=== PATIENT | female | born 1955 | race Caucasian/White ===

== ENCOUNTER 2017-11-15 15:29 | Inpatient (IN) | payer OTHER ==
[~2017-11-15] VITALS: Ht 165.1 cm; Wt 99.3 kg
[2017-11-15] VITALS (9 sets, daily range): BP systolic 139–170; BP diastolic 72–96; PULSE 107–124; RESP 16–22; TEMP 99.1–99.5; O2SAT 87–95
[~2017-11-15 15:29] MED LIST: AMLO5TAB2 PO; BUPR150XL PO; HYDR-3533 PO; IBUP-232 PO; REST0.05 EACH EYE; TAMS5CAP PO; TRAV0.00 EACH EYE; WATER PILL; ZOFR4TAB PO
--- NOTE | 2017-11-15 15:58 | PD ---
HPI Chief Complaint: Respiratory Symptoms Time Seen by Provider: 15:38 Travel History International Travel<30 days: No Contact w/Intl Traveler<30days: No Traveled to known affect area: No History of Present Illness HPI Patient has a 62-year-old female with a history of COPD, 1 pack per day smoker presents emergency department with 2 day history of cough congestion shortness of breath nasal stuffiness, intermittent chills. Has not taken her temperature at home but thinks it has been in excess of 100 particularly in the morning at night at night. She is not on any home oxygen. States this happens to her about once a year an typically in the colder months. Denies any history of long stasis, any history of blood clots any history of cancer. States symptoms are moderate, gradually worsening, contacts as above, associated signs symptoms as above PFSH Past Medical History Anxiety: No Depression: Yes Cancer: Yes (SKIN CANCER) Cardiovascular Problems: Yes (htn on meds) Diabetes: No Diminished Hearing: No Endocrine: No Glaucoma: Yes Genitourinary: No Hypertension: Yes Immune Disorder: No Kidney Stones: Yes (OCT 2012) Musculoskeletal: No Neurologic: No Psychiatric: Yes Reproductive: No Respiratory: No Thyroid Disease: No ?: Not : 2 Para: 2 Past Surgical History Abdominal Surgery: Yes (GALL BLADDER) Cholecystectomy: Yes Genitourinary Surgery: Yes Gynecologic Surgery: Yes (HYSTERECTOMY, OOPHERECTOMY ) Hysterectomy: Yes Oral Surgery: Yes (TONSILS) Tonsillectomy: Yes Other Surgery: Yes Social History Alcohol Use: Yes (Occasionally ) Tobacco Use: Yes (1 PPD) Substance Use: No Allergies-Medications (Allergen,Severity, Reaction): Coded Allergies: iodine (Unverified Allergy, Severe, Swelling, 11/15/17) potassium iodide (Unverified Allergy, Severe, Swelling, 11/15/17) povidone-iodine (Unverified Allergy, Severe, Swelling, 11/15/17) sodium iodide (Unverified Allergy, Severe, Swelling, 11/15/17) sodium iodide (Unverified Allergy, Severe, Swelling, 11/15/17) Reported Meds & Prescriptions Reported Meds & Active Scripts Active Reported Travatan Z Opth Drops (Travoprost) 0.004 % Soln 1 Drop EACH EYE HS Restasis Opth (Cyclosporine Opth) 0.05% Emul 1 Drop EACH EYE BID Wellbutrin Xl 24 HR (Bupropion HCl) 150 Mg Tab 75 Mg PO DAILY Amlodipine (Amlodipine Besylate) 5 Mg Tab 5 Mg PO DAILY Review of Systems Except as stated in HPI: all other systems reviewed are Neg Physical Exam Narrative GENERAL: Well-developed well-nourished, speaking in short phrases. SKIN: Focused skin assessment warm/dry. HEAD: Atraumatic. Normocephalic. EYES: Pupils equal and round. No scleral icterus. No injection or drainage. ENT: No nasal bleeding or discharge. Mucous membranes pink and moist. NECK: Trachea midline. No JVD. CARDIOVASCULAR: Regular rhythm with tachycardia. No murmur appreciated. No murmurs gallops or rubs. RESPIRATORY: No accessory muscle use. Decreased air entry on the left, decreased air entry in the right, bibasilar rales. There are some intercostal retractions. Breath sounds equal bilaterally. GASTROINTESTINAL: Abdomen soft, non-tender, nondistended. Hepatic and splenic margins not palpable. MUSCULOSKELETAL: No obvious deformities. No clubbing. No cyanosis. No edema. NEUROLOGICAL: Awake and alert. No obvious cranial nerve deficits. Motor grossly within normal limits. Normal speech. PSYCHIATRIC: Appropriate mood and affect; insight and judgment normal. Data Data Last Documented VS Vital Signs Date Time Temp Pulse Resp B/P (MAP) Pulse Ox O2 Delivery O2 Flow Rate FiO2 11/15/17 18:12 99.5 123 19 153/83 (106) 95 Nasal Cannula 2.00 Orders Orders Sepsis Workup Initiated (11/15/17 ) Complete Blood Count With Diff (11/15/17 15:51) Comprehensive Metabolic Panel (11/15/17 15:51) Prothrombin Time / Inr (Pt) (11/15/17 15:51) Act Partial Throm Time (Ptt) (11/15/17 15:51) Lactic Acid Sepsis Protocol (11/15/17 15:51) Magnesium (Mg) (11/15/17 15:51) Phosphorus (Po4) (11/15/17 15:51) Lipase (11/15/17 15:51) Ckmb (Isoenzyme) Profile (11/15/17 15:51) Troponin I (11/15/17 15:51) Urinalysis - C+S If Indicated (11/15/17 15:51) Blood Culture (11/15/17 15:51) Chest, Pa & Lat (11/15/17 15:51) Ecg Monitoring (11/15/17 15:51) Iv Access Insert/Monitor (11/15/17 15:51) Oximetry (11/15/17 15:51) Oxygen Administration (11/15/17 15:51) Albuterol-Ipratropium Neb (Duoneb Neb) (11/15/17 16:00) Influenzae A/B Antigen (11/15/17 15:51) Prednisone (Deltasone) (11/15/17 18:15) Azithromycin (Zithromax) (11/15/17 18:15) Ceftriaxone Inj (Rocephin Inj) (11/15/17 18:15) Admit Order (Ed Use Only) (11/15/17 ) Labs Laboratory Tests Test 11/15/17 15:40 11/15/17 16:54 White Blood Count 15.5 TH/MM3 Red Blood Count 5.14 MIL/MM3 Hemoglobin 14.9 GM/DL Hematocrit 46.1 % Mean Corpuscular Volume 89.7 FL Mean Corpuscular Hemoglobin 28.9 PG Mean Corpuscular Hemoglobin Concent 32.2 % Red Cell Distribution Width 13.0 % Platelet Count 322 TH/MM3 Mean Platelet Volume 8.7 FL Neutrophils (%) (Auto) 80.4 % Lymphocytes (%) (Auto) 10.8 % Monocytes (%) (Auto) 5.2 % Eosinophils (%) (Auto) 2.7 % Basophils (%) (Auto) 0.9 % Neutrophils # (Auto) 12.5 TH/MM3 Lymphocytes # (Auto) 1.7 TH/MM3 Monocytes # (Auto) 0.8 TH/MM3 Eosinophils # (Auto) 0.4 TH/MM3 Basophils # (Auto) 0.1 TH/MM3 CBC Comment DIFF FINAL Differential Comment Prothrombin Time 9.9 SEC Prothromb Time International Ratio 1.0 RATIO Activated Partial Thromboplast Time 28.5 SEC Blood Urea Nitrogen 7 MG/DL Creatinine 0.71 MG/DL Random Glucose 111 MG/DL Total Protein 7.6 GM/DL Albumin 3.3 GM/DL Calcium Level 9.0 MG/DL Phosphorus Level 2.6 MG/DL Magnesium Level 2.1 MG/DL Alkaline Phosphatase 132 U/L Aspartate Amino Transf (AST/SGOT) 14 U/L Alanine Aminotransferase (ALT/SGPT) 20 U/L Total Bilirubin 0.5 MG/DL Sodium Level 138 MEQ/L Potassium Level 3.7 MEQ/L Chloride Level 103 MEQ/L Carbon Dioxide Level 27.0 MEQ/L Anion Gap 8 MEQ/L Estimat Glomerular Filtration Rate 84 ML/MIN Lactic Acid Level 1.4 mmol/L Total Creatine Kinase 77 U/L Troponin I LESS THAN 0.02 NG/ML Lipase 65 U/L MDM Medical Decision Making Medical Screen Exam Complete: Yes Emergency Medical Condition: Yes Differential Diagnosis COPD exacerbation, pneumonia, bronchitis, URI, hypoxic respiratory failure Narrative Course Patient room to the emergency department, initial saturation 87% on room air, placed on nasal cannula, DuoNeb's given, saturations have improved to 93% on 2 L nasal cannula, trial off of nasal cannula drop saturation to 89%. Restarted on nasal cannula, steroids given, chest x-ray but official read as no acute consolidation. Continues to have hypoxia despite treatments in the emergency department, remaining tachycardic. Discussed with her abnormal vital signs recommend overnight stay in the hospital least, will start on empiric antibiotics for possible occult pneumonia. Patient discussed with Dr. Janice Julio for admission who is agreeable. Diagnosis Primary Impression: Acute respiratory failure with hypoxia Additional Impressions: COPD exacerbation SIRS (systemic inflammatory response syndrome) Admitting Information Admitting Physician Requests: Observation Condition: Stable Sharif Smith MD Nov 15, 2017 15:58
[2017-11-15] MEDS ORDERED: RESP: ALBUTEROL 2.5 MG/IPRATROPIUM 0.5 MG NEB (SCH) NEB ONE (16:00)
[2017-11-15 16:05] LABS: AUTOMATED NEUTROPHIL # 12.5 TH/MM3 (1.8-7.7); BASOPHIL # 0.1 TH/MM3 (0-0.2); BASOPHIL % 0.9 % (0.0-2.0); EOSINOPHIL # 0.4 TH/MM3 (0-0.4); EOSINOPHIL % 2.7 % (0.0-4.0); HEMATOCRIT 46.1 % (35.0-46.0); HEMOGLOBIN 14.9 GM/DL (11.6-15.3); LYMPH % 10.8 % (9.0-44.0); LYMPHOCYTE # 1.7 TH/MM3 (1.0-4.8); MEAN CELL VOLUME 89.7 FL (80.0-100.0); MEAN CORPUSCULAR HEMOGLOBIN 28.9 PG (27.0-34.0); MEAN CORPUSCULAR HGB CONC 32.2 % (32.0-36.0); MEAN PLATELET VOLUME 8.7 FL (7.0-11.0); MONO % 5.2 % (0.0-8.0); MONOCYTE # 0.8 TH/MM3 (0-0.9); NEUT % 80.4 % (16.0-70.0); PLATELET COUNT 322 TH/MM3 (150-450); RED BLOOD COUNT 5.14 MIL/MM3 (4.00-5.30); WHITE BLOOD COUNT 15.5 TH/MM3 (4.0-11.0)
[2017-11-15 16:15] LABS: CHLORIDE 103 MEQ/L (98-107); SODIUM (NA) 138 MEQ/L (136-145)
[2017-11-15 16:19] LABS: ALBUMIN 3.3 GM/DL (3.4-5.0); BLOOD UREA NITROGEN 7 MG/DL (7-18); GLUCOSE,RANDOM 111 MG/DL (74-106); LIPASE 65 U/L (73-393); MAGNESIUM 2.1 MG/DL (1.5-2.5)
[2017-11-15 16:20] LABS: PROTHROMBIN TIME - PATIENT 9.9 SEC (9.8-11.6)
[2017-11-15 16:21] LABS: ALT (GPT) 20 U/L (10-53)
[2017-11-15 16:22] LABS: AST (GOT) 14 U/L (15-37); CREATININE 0.71 MG/DL (0.50-1.00); GLOMERULAR FILTRATION RATE 84 ML/MIN (>89); PHOSPHORUS 2.6 MG/DL (2.5-4.9)
[2017-11-15 16:23] LABS: TOTAL BILIRUBIN ADULT 0.5 MG/DL (0.2-1.0); TOTAL PROTEIN 7.6 GM/DL (6.4-8.2)
[2017-11-15 16:24] LABS: ALKALINE PHOSPHATASE 132 U/L (45-117)
[2017-11-15 16:27] LABS: TROPONIN I LESS THAN 0.02 NG/ML (0.02-0.05)
--- NOTE | 2017-11-15 17:56 | RADRPT ---
EXAM DATE/TIME: 11/15/2017 17:09 [facility] COMPARISON: CHEST PA & LAT, September 09, 2014, 22:51. INDICATIONS : Cough, short of breath, fever, pain MEDICAL HISTORY : None. SURGICAL HISTORY : None. ENCOUNTER: Initial ACUITY: 3 days PAIN SCORE: 5/10 LOCATION: Bilateral chest FINDINGS: PA and lateral views of the chest demonstrate the lungs to be symmetrically aerated without evidence of mass, infiltrate or effusion. The cardiomediastinal contours are unremarkable. Osseous structure s are intact. CONCLUSION: No acute disease. Chavo Velazco MD on November 15, 2017 at 17:54 Board Certified Radiologist. This report was verified electronically.
[2017-11-15] MEDS ORDERED: AZITHROMYCIN 250 MG TAB PO ONE (18:15)
[2017-11-15] MEDS ORDERED: cefTRIAXone INJ 1,000 MG in SODIUM CHLORIDE 0.9% INJ 100 ML IV ONE (18:15)
[2017-11-15] MEDS ORDERED: predniSONE 20 MG TAB PO ONE (18:15)
[2017-11-15] MEDS ORDERED: AZITHROMYCIN 250 MG TAB PO SCH (18:45)
[2017-11-15] MEDS: methylPREDNISolone SOD SUCC 125 MG/2 ML VIAL IV PUSH SCH (20:10)
[2017-11-15] MEDS: ENOXAPARIN SODIUM 40 MG/0.4 ML SYRINGE SQ SCH (20:10)
[2017-11-15] MEDS: RESP: ALBUTEROL 2.5 MG/IPRATROPIUM 0.5 MG NEB (SCH) INH (20:19)
[2017-11-15] MEDS: CYCLOSPORINE EACH EYE SCH (21:00)
[2017-11-15] MEDS: SODIUM CHLORIDE 0.9% FLUSH 10 ML FLUSH IV FLUSH SCH (21:13)
[2017-11-15] MEDS: LATANOPROST 0.005% OPHT SOLN 2.5 ML BTL EACH EYE SCH (21:32)
[2017-11-16] VITALS (10 sets, daily range): BP systolic 128–150; BP diastolic 64–90; PULSE 100–120; RESP 14–18; TEMP 97–99.1; O2SAT 91–100
[2017-11-16] MEDS: RESP: ALBUTEROL 2.5 MG/3 ML NEB (PRN) INH ×2 (00:46→05:19)
[2017-11-16] MEDS: SODIUM CHLORIDE 0.9% FLUSH 10 ML FLUSH IV FLUSH PRN (01:17)
[2017-11-16] MEDS: methylPREDNISolone SOD SUCC 125 MG/2 ML VIAL IV PUSH SCH ×4 (01:17→19:57)
[2017-11-16] MEDS: guaiFENesin SOLUTION 200 MG/10 ML CUP PO PRN ×3 (01:17→23:12)
[2017-11-16] MEDS ORDERED: ACETAMINOPHEN 325 MG TAB PO PRN (05:00)
[2017-11-16] MEDS: RESP: ALBUTEROL 2.5 MG/IPRATROPIUM 0.5 MG NEB (SCH) INH ×3 (07:46→20:20)
[2017-11-16] MEDS: SODIUM CHLORIDE 0.9% FLUSH 10 ML FLUSH IV FLUSH SCH ×2 (08:02→19:57)
[2017-11-16] MEDS: CYCLOSPORINE EACH EYE SCH ×2 (09:00→20:01)
[2017-11-16] MEDS: buPROPion HCL 75 MG TAB PO SCH (09:07)
[2017-11-16] MEDS: amLODIPine BESYLATE 5 MG TAB PO SCH (09:07)
--- NOTE | 2017-11-16 10:13 | HHI.HP ---
[facility] Erin Lozoya MD Admission Diagnosis Hyoxic respiratory failure, COPD exacerbation. Diagnoses: Chief Complaint: sob Travel History International Travel<30 Days: No Contact w/Intl Traveler <30 Da: No Traveled to Known Affected Are: No History of Present Illness 62-year-old female with a past medical history of hypertension, anxiety/ depression, tobaccoism, came to the emergency room evaluation of shortness of breath, wheezing getting worse since Thursday. This patient has persistent cough waking her up from night productive cough of yellow. She chills. No vomiting. 2. Also complains of wheezing eating worse. Was she was never diagnosed with COPD. However she is more per day for 5 years. No chest pain, palpitations, lightheadedness. No urinary complaints no abdominal pain. Feels tired. Review of Systems Except as stated in HPI: all other systems reviewed are Neg Past Family Social History Past Medical History Hypertension, depression Past Surgical History Hysterectomy, tonsillectomy, cholecystectomy Reported Medications Reported Meds & Active Scripts Active Reported Travatan Z Opth Drops (Travoprost) 0.004 % Soln 1 Drop EACH EYE HS Restasis Opth (Cyclosporine Opth) 0.05% Emul 1 Drop EACH EYE BID Wellbutrin Xl 24 HR (Bupropion HCl) 150 Mg Tab 75 Mg PO DAILY Amlodipine (Amlodipine Besylate) 5 Mg Tab 5 Mg PO DAILY Allergies: Coded Allergies: iodine (Unverified Allergy, Severe, Swelling, 11/15/17) potassium iodide (Unverified Allergy, Severe, Swelling, 11/15/17) povidone-iodine (Unverified Allergy, Severe, Swelling, 11/15/17) sodium iodide (Unverified Allergy, Severe, Swelling, 11/15/17) sodium iodide (Unverified Allergy, Severe, Swelling, 11/15/17) Family History Mother with COPD, pancreatic cancer Father with heart disease, quadruple bypass Brother with diabetes, alcohol abuse Social History Tobacco use 1 pack per day for 5 years Denies alcohol use or illicit drug use Physical Exam Vital Signs Vital Signs Date Time Temp Pulse Resp B/P (MAP) Pulse Ox O2 Delivery O2 Flow Rate FiO2 11/16/17 09:52 Nasal Cannula 2.00 11/16/17 08:00 97.2 113 14 144/71 (95) 100 11/16/17 07:47 93 Nasal Cannula 3.00 11/16/17 05:19 91 Nasal Cannula 3.00 11/16/17 04:00 98.0 100 16 132/78 (96) 94 11/16/17 00:00 99.1 120 16 139/84 (102) 93 11/15/17 23:15 107 11/15/17 22:00 99.1 120 16 139/84 (102) 94 11/15/17 21:30 93 Nasal Cannula 3.00 11/15/17 21:04 112 16 154/73 (100) 93 Nasal Cannula 3.00 11/15/17 20:19 95 Nasal Cannula 3.00 11/15/17 19:26 114 16 94 Nasal Cannula 3.00 11/15/17 19:26 114 16 150/81 (104) 94 Nasal Cannula 3.00 11/15/17 18:12 99.5 123 19 153/83 (106) 95 Nasal Cannula 2.00 11/15/17 17:17 123 18 153/72 (99) 94 Nasal Cannula 2.00 11/15/17 17:14 18 93 Nasal Cannula 2.00 11/15/17 16:59 94 Nasal Cannula 3.00 11/15/17 15:55 94 Nasal Cannula 3.00 11/15/17 15:48 99.3 124 22 170/96 (120) 87 Physical Exam GENERAL: This is a well-nourished, well-developed patient, in no apparent distress. SKIN: No rashes, ecchymoses or lesions. Cool and dry. HEAD: Atraumatic. Normocephalic. No temporal or scalp tenderness. EYES: Pupils equal round and reactive. Extraocular motions intact. No scleral icterus. No injection or drainage. ENT: Nose without bleeding, purulent drainage or septal hematoma. Throat without erythema, tonsillar hypertrophy or exudate. Uvula midline. Airway patent. NECK: Trachea midline. No JVD or lymphadenopathy. Supple, nontender, no meningeal signs. CARDIOVASCULAR: Regular rate and rhythm without murmurs, gallops, or rubs. RESPIRATORY: Clear to auscultation. Breath sounds equal bilaterally. No wheezes , rales, or rhonchi. GASTROINTESTINAL: Abdomen soft, non-tender, nondistended. No hepato-splenomegaly , or palpable masses. No guarding. MUSCULOSKELETAL: Extremities without clubbing, cyanosis, or edema. No joint tenderness, effusion, or edema noted. No calf tenderness. Negative Homans sign bilaterally. NEUROLOGICAL: Awake and alert. Cranial nerves II through XII intact. Motor and sensory grossly within normal limits. Five out of 5 muscle strength in all muscle groups. Normal speech. Laboratory Laboratory Tests Test 11/15/17 15:40 White Blood Count 15.5 Red Blood Count 5.14 Hemoglobin 14.9 Hematocrit 46.1 Mean Corpuscular Volume 89.7 Mean Corpuscular Hemoglobin 28.9 Mean Corpuscular Hemoglobin Concent 32.2 Red Cell Distribution Width 13.0 Platelet Count 322 Mean Platelet Volume 8.7 Neutrophils (%) (Auto) 80.4 Lymphocytes (%) (Auto) 10.8 Monocytes (%) (Auto) 5.2 Eosinophils (%) (Auto) 2.7 Basophils (%) (Auto) 0.9 Neutrophils # (Auto) 12.5 Lymphocytes # (Auto) 1.7 Monocytes # (Auto) 0.8 Eosinophils # (Auto) 0.4 Basophils # (Auto) 0.1 CBC Comment DIFF FINAL Differential Comment Prothrombin Time 9.9 Prothromb Time International Ratio 1.0 Activated Partial Thromboplast Time 28.5 Blood Urea Nitrogen 7 Creatinine 0.71 Random Glucose 111 Total Protein 7.6 Albumin 3.3 Calcium Level 9.0 Phosphorus Level 2.6 Magnesium Level 2.1 Alkaline Phosphatase 132 Aspartate Amino Transf (AST/SGOT) 14 Alanine Aminotransferase (ALT/SGPT) 20 Total Bilirubin 0.5 Sodium Level 138 Potassium Level 3.7 Chloride Level 103 Carbon Dioxide Level 27.0 Anion Gap 8 Estimat Glomerular Filtration Rate 84 Lactic Acid Level 1.4 Total Creatine Kinase 77 Troponin I LESS THAN 0.02 Lipase 65 Date/Time Source Procedure Growth Status 11/15/17 15:45 Blood Peripheral Aerobic Blood Culture Pending Received 11/15/17 15:45 Blood Peripheral Anaerobic Blood Culture Pending Received 11/15/17 16:54 Nasal Washing Influenza Types A,B Antigen (KIRA) - Final NEGATIVE FOR FLU A AND B ANTIGEN.... Complete Result Diagram: 11/15/17 1540 11/15/17 1540 Imaging Last Impressions Chest X-Ray 11/15/17 1551 Signed Impressions: Service Date/Time: Wednesday, November 15, 2017 17:09 - CONCLUSION: No acute disease. MD Norah Nance VTE Risk Assessment Norah VTE Risk Assessment: Mod/High Risk (score >= 2) Geraldrini Risk Assessment Model Point Value = 1 Point Value = 2 Point Value = 3 Point Value = 5 Age 41-60 Minor surgery BMI > 25 kg/m2 Swollen legs Varicose veins or History of unexplained or recurrent spontaneous Oral contraceptives or hormone replacement Sepsis (< 1 month) Serious lung disease, including pneumonia (< 1 month) Abnormal pulmonary function Acute myocardial infarction Congestive heart failure (< 1 month) History of inflammatory bowel disease Medical patient at bed rest Age 61-74 Arthroscopic surgery Major open surgery (> 45 min) Laparoscopic surgery (> 45 min) Malignancy Confined to bed (> 72 hours) Immobilizing plaster cast Central venous access Age >= 75 History of VTE Family history of VTE Factor V Leiden Prothrombin [id number] Lupus anticoagulant Anticardiolipin antibodies Elevated serum homocysteine Heparin-induced thrombocytopenia Other congenital or acquired thrombophilia Stroke (< 1 month) Elective arthroplasty Hip, pelvis, or leg fracture Acute spinal cord injury (< 1 month) Prophylaxis Regimen Total Risk Factor Score Risk Level Prophylaxis Regimen 0-1 Low Early ambulation 2 Moderate Order ONE of the following: *Sequential Compression Device (SCD) *Heparin 5000 units SQ BID 3-4 Higher Order ONE of the following medications: *Heparin 5000 units SQ TID *Enoxaparin/Lovenox 40 mg SQ daily (WT < 150 kg, CrCl > 30 mL/min) *Enoxaparin/Lovenox 30 mg SQ daily (WT < 150 kg, CrCl > 10-29 mL/min) *Enoxaparin/Lovenox 30 mg SQ BID (WT < 150 kg, CrCl > 30 mL/min) AND/OR *Sequential Compression Device (SCD) 5 or more Highest Order ONE of the following medications: *Heparin 5000 units SQ TID (Preferred with Epidurals) *Enoxaparin/Lovenox 40 mg SQ daily (WT < 150 kg, CrCl > 30 mL/min) *Enoxaparin/Lovenox 30 mg SQ daily (WT < 150 kg, CrCl > 10-29 mL/min) *Enoxaparin/Lovenox 30 mg SQ BID (WT < 150 kg, CrCl > 30 mL/min) AND *Sequential Compression Device (SCD) Assessment and Plan Assessment and Plan 62 yo male with Community-acquired pneumonia Hypoxia Hypertension, stable resume home meds. Monitor Depression /anxiety stable resume, home meds Antibiotics azithromycin, Rocephin IV Incentive spirometry Oxygen supplement keep oxygen saturation more than 90% Mucinex DuoNeb's when necessary Check blood cultures, sputum cultures, Legionella and pneumococcal antigen Resume home medications as appropriate DVT prophylaxis SCD/teds/Lovenox Discussed Condition With patient, nurse Physician Certification 2 Midnight Certification Type: Admission for Inpatient Services Order for Inpatient Services The services are ordered in accordance with Medicare regulations or non- Medicare payer requirements, as applicable. In the case of services not specified as inpatient-only, they are appropriately provided as inpatient services in accordance with the 2-midnight benchmark. Estimated LOS (days): 3 days is the estimated time the patient will need to remain in the hospital, assuming treatment plan goals are met and no additional complications. Post-Hospital Plan: Home Amanda Rich MD Nov 16, 2017 10:13
[2017-11-16] MEDS ORDERED: AZITHROMYCIN 250 MG TAB PO SCH (18:00)
[2017-11-16] MEDS: ENOXAPARIN SODIUM 40 MG/0.4 ML SYRINGE SQ SCH (19:56)
[2017-11-16] MEDS: LATANOPROST 0.005% OPHT SOLN 2.5 ML BTL EACH EYE SCH (20:00)
--- NOTE | 2017-11-16 20:45 | EKG ---
Date Performed: 11/15/2017 Time Performed: 15:35:56 PTAGE: 62 years EKG: SINUS TACHYCARDIA INCOMPLETE RIGHT BUNDLE BRANCH BLOCK NONSPECIFIC ST-T WAVE CHANGES Since previous tracing, no significant change noted ABNORMAL ECG PREVIOUS TRACING : 09/09/14 @ 2233 DOCTOR: Nell Noriega Interpretating Date/Time 11/16/2017 20:43:48
[2017-11-16 22:07] LABS: BILIRUBIN, URINE NEG (NEG); BLOOD, URINE NEG (NEG); GLUCOSE,URINE NEG (NEG); KETONE, URINE NEG (NEG); NITRITE,URINE NEG (NEG); PH, URINE 6.5 (5.0-8.5); URINE LEUKOCYTE ESTERASE NEG (NEG)
[2017-11-16 22:16] LABS: URINE COLOR YELLOW (YELLW/STRAW)
[2017-11-16 22:17] LABS: SQUAMOUS EPITHELIAL CELL URINE 0-5 /hpf (0-5); WBC, URINE 0-2 /hpf (0-5)
[2017-11-17] VITALS: BP 121/69; PULSE 104; RESP 18; TEMP 96.6; O2SAT 93
[2017-11-17] MEDS: methylPREDNISolone SOD SUCC 125 MG/2 ML VIAL IV PUSH SCH ×3 (01:40→13:11)
[2017-11-17] MEDS: SODIUM CHLORIDE 0.9% FLUSH 10 ML FLUSH IV FLUSH PRN (01:40)
[2017-11-17 04:00] VITALS: BP 124/69; PULSE 98; RESP 16; TEMP 97.3; O2SAT 93
[2017-11-17 04:53] LABS: AUTOMATED NEUTROPHIL # 22.4 TH/MM3 (1.8-7.7); BASOPHIL # 0.1 TH/MM3 (0-0.2); BASOPHIL % 0.3 % (0.0-2.0); HEMATOCRIT 43.8 % (35.0-46.0); LYMPH % 5.4 % (9.0-44.0); LYMPHOCYTE # 1.3 TH/MM3 (1.0-4.8); MEAN CELL VOLUME 91.4 FL (80.0-100.0); MEAN CORPUSCULAR HEMOGLOBIN 29.2 PG (27.0-34.0); MEAN PLATELET VOLUME 8.5 FL (7.0-11.0); MONO % 2.8 % (0.0-8.0); MONOCYTE # 0.7 TH/MM3 (0-0.9); NEUT % 91.5 % (16.0-70.0); PLATELET COUNT 374 TH/MM3 (150-450); RED BLOOD COUNT 4.79 MIL/MM3 (4.00-5.30); RED CELL DISTRIBUTION WIDTH 13.7 % (11.6-17.2); WHITE BLOOD COUNT 24.5 TH/MM3 (4.0-11.0)
[2017-11-17 05:07] LABS: BICARBONATE 30.5 MEQ/L (21.0-32.0); CALCIUM 9.6 MG/DL (8.5-10.1)
[2017-11-17 05:11] LABS: CREATININE 0.95 MG/DL (0.50-1.00)
[2017-11-17 08:00] VITALS: BP 126/72; PULSE 117; RESP 14; TEMP 97; O2SAT 97
[2017-11-17] MEDS: RESP: ALBUTEROL 2.5 MG/IPRATROPIUM 0.5 MG NEB (SCH) INH (08:24)
[2017-11-17 08:26] VITALS: O2SAT 94
[2017-11-17 08:40] VITALS: PULSE 96
[2017-11-17] MEDS: CYCLOSPORINE EACH EYE SCH (09:23)
[2017-11-17] MEDS: SODIUM CHLORIDE 0.9% FLUSH 10 ML FLUSH IV FLUSH SCH (09:25)
[2017-11-17] MEDS: amLODIPine BESYLATE 5 MG TAB PO SCH (09:25)
[2017-11-17] MEDS: buPROPion HCL 75 MG TAB PO SCH (09:25)
[2017-11-17] MEDS ORDERED: SODIUM CHLORID 0.9% 500 ML INJ 500 ML IV ONE (11:30)
[2017-11-17 12:00] VITALS: BP 124/74; PULSE 107; RESP 15; TEMP 97.5; O2SAT 97
[2017-11-17] MEDS ORDERED: SODIUM CHLOR 0.9% 250 ML INJ 250 ML IV ONE (12:00)
[2017-11-17] MEDS ORDERED: PRED10PA PO (12:37)
[2017-11-17] MEDS ORDERED: AZIT250T3 PO (12:37)
--- NOTE | 2017-11-17 12:38 | HHI.DCPOC ---
Discharge Care Plan Diagnosis: (1) COPD exacerbation (2) Acute respiratory failure with hypoxia (3) Acute bronchitis Goals to Promote Your Health * To prevent worsening of your condition and complications * To maintain your health at the optimal level Directions to Meet Your Goals Take your medications as prescribed Follow your dietary instruction Follow activity as directed Keep your appointments as scheduled Take your immunizations and boosters as scheduled If your symptoms worsen call your PCP, if no PCP go to Urgent Care Center or Emergency Room Smoking is Dangerous to Your Health. Avoid second hand smoke Call the 24-hour hour crisis hotline for domestic abuse at Daniel Horton MD Nov 17, 2017 12:38
[2017-11-17] MEDS ORDERED: ALBUAER3 INH (12:39)
--- NOTE | 2017-11-17 12:42 | HHI.PR ---
Subjective Remarks Patient tolerated transition to room oxygen well. She clinically feels improved. D-dimer is within normal limits. Wanting to go home Objective Vital Signs Date Time Temp Pulse Resp B/P (MAP) Pulse Ox O2 Delivery O2 Flow Rate FiO2 11/17/17 08:26 94 21 11/17/17 08:00 97.0 117 14 126/72 (90) 97 11/17/17 04:00 97.3 98 16 124/69 (87) 93 11/17/17 00:00 96.6 104 18 121/69 (86) 93 11/16/17 20:20 94 21 11/16/17 20:00 115 11/16/17 20:00 97.0 103 18 128/72 (90) 94 11/16/17 20:00 97 Room Air 11/16/17 16:00 97.8 120 16 138/70 (92) 95 11/16/17 14:23 96 Nasal Cannula 3.00 I/O 11/16/17 11/16/17 11/16/17 11/17/17 11/17/17 11/17/17 06:59 14:59 22:59 06:59 14:59 22:59 Intake Total 240 ml Balance 240 ml Intake Oral 240 ml # Voids 2 3 Result Diagram: 11/17/17 0425 11/17/17 0425 Objective Remarks Unlabored breathing, no cyanosis, clear lung sounds Sitting up in bed, no acute distress A/P Assessment and Plan Acute hypoxic respiratory failure - resolved. Likely secondary to COPD exacerbation. D-dimer within normal limits. Heart rate has stabilized into the low 100s down to 104. Her tachycardia was most likely due to bronchodilator -induced side effects. TSH is within normal limits. Patient has met maximal benefit from hospitalization and is clinically stable for discharge. Daniel Horton MD Nov 17, 2017 12:41
== END 2017-11-17 14:00 | disposition home or self-care (01) | DRG 189 ==
LOC: PHED 15:29 → PHEDA 18:42 → PH3A 20:57 → OBSVTOIN 11-17 10:34
PROVIDERS: ADMIT Hospitalist; ATTEND Hospitalist
DX: J96.01 Acute respiratory failure with hypoxia (principal); J18.9 Pneumonia, unspecified organism; J44.1 Chronic obstructive pulmonary disease with (acute) exacerbation; J44.0 Chronic obstructive pulmonary disease with (acute) lower respiratory infection; I10 Essential (primary) hypertension; H40.9 Unspecified glaucoma; R00.0 Tachycardia, unspecified; T48.6X5A Adverse effect of antiasthmatics, initial encounter; J20.9 Acute bronchitis, unspecified; F17.210 Nicotine dependence, cigarettes, uncomplicated; F32.9 Major depressive disorder, single episode, unspecified; F41.9 Anxiety disorder, unspecified; Z85.828 Personal history of other malignant neoplasm of skin
CPT/HCPCS: 71046; 80048; 80053; 81001; 82550; 83605; 83690; 83735; 84100; 84443; 84484; 85025; 85379; 85610; 85730; 87040; 87070; 87205; 87449; 87804; 93005; 94640; 94664; 96365; 96372; 96375; G0378; J0696; J1650; J2930; J7040; J7050; J7512; J7613

== ENCOUNTER → 2018-04-19 | Outpatient (CLI) | payer OTHER ==
--- NOTE | 2018-04-14 14:42 | MH ---
cc: Román Echols MD DATE OF ADMISSION: 04/19/2018 ADMISSION DIAGNOSIS: Cataract, right eye. HISTORY OF PRESENT ILLNESS: This 62-year-old white female is coming to [facility] for the purpose of a lens extraction of the right eye with intraocular lens implant under local anesthesia. She has noticed decreasing visual acuity interfering with her daily activities and elected to have the above procedure. Her best corrected visual acuity in room light is 20/50 -1 in the right eye and 20/25 -2 in the left. PAST MEDICAL HISTORY: The patient has a history of hypertension. PAST SURGICAL HISTORY: Includes tonsillectomy, cholecystectomy, hysterectomy, ovum ectomy. DAILY MEDICATIONS: Include Restasis eye drops twice a day, latanoprost eyedrops in both eyes, Wellbutrin, as well as amlodipine. ALLERGIES: SHE IS ALLERGIC TO IODINE INJECTION, BUT BETADINE ON HER SKIN WOULD BE OKAY. SOCIAL HISTORY: She was a 1 pack per day smoker for 4 years and drinks alcohol twice weekly. FAMILY HISTORY: Positive for mother and grandmother with cataracts. Maternal aunts and grandmother with glaucoma. Mom with pancreatic cancer and heart disease in her father. REVIEW OF SYSTEMS: HEAD: Patient denies severe headaches, dizziness or recent head injury. EARS: Patient denies hearing loss, ear pain, discharge or ringing in the ears. NOSE: Patient denies nasal discharge, obstruction or frequent colds. MOUTH AND THROAT: Patient denies soreness of the mouth or tongue, bleeding gums, trouble swallowing, changes in voice or sore throat. NECK: Patient denies neck pain or swelling, limitation of neck movement or neck injury. CARDIOPULMONARY SYSTEM: Patient denies shortness of breath, orthopnea, chronic cough, sputum production, hemoptysis, chest pain, wheezing, palpitations or light-headedness. GI SYSTEM: Patient has hemorrhoids and does sleep with several pillows for comfort, but denies poor appetite, nausea, vomiting, abdominal pain, ulcers or change in bowel habits. SYSTEM: The patient denies urinary frequency, dysuria, change in urine color. NERVOUS SYSTEM: Patient denies convulsions, vertigo, stroke, numbness or weakness. PHYSICAL EXAM: VITAL SIGNS: Blood pressure 138/96, pulse 88, respirations 16. HEENT: Head is normocephalic, atraumatic. Nose without rhinorrhea. Throat, clear. NECK: Supple. CHEST: Clear. HEART: Regular rate and rhythm. ABDOMEN: Without tenderness. EXTREMITIES: Without edema. NEUROLOGIC: Within normal limits. MENTAL STATUS: Within normal limits. EYE EXAM: The patient's best corrected visual acuity in room light is 20/50 -1 in the right eye and 20/25 -3 in the left. Visual hurley are full to confrontation testing. Extraocular muscle exam reveals full versions with orthophoria at distance and near. Pupils are 3 mm, equal, round, and reactive to light without afferent defect. Anterior segment examination reveals mild guttata bilaterally on the cornea. There are nuclear sclerotic cataracts greater in the right eye than the left. Intraocular pressure is 12 in each eye by applanation tonometry. Dilated fundus exam revealed sharp disc with cup-to-disc ratio of 0.3 bilaterally. The macula is clear and the background is within normal limits. IMPRESSION: 1. Bilateral cataracts, right greater than left. 2. Chronic open angle glaucoma - mild controlled with medication. 3. Dry eyes. PLAN: Lens extraction of the right eye with intraocular lens implant under local anesthesia through [facility]. The patient has been cleared medically. She has been counseled as to the risks, benefits and alternatives and elected to proceed. I feel that cataract surgery will improve the quality of life and activities of daily living in this patient. MD LIZETT Mario/CONCEPCIÓN , 09:15 AM , 09:45 AM
[~2018-04-19] VITALS: Ht 165.1 cm; Wt 95.5 kg
[~2018-04-19] MED LIST changes: +ACETYLCHOLINE CHL OPHT SOLN 1:100 2 ML VIAL ONE; +ALBUAER3 INH; +CHLORHEXIDINE GLUCONATE 2 % 1 PACK (2 CLOTHS) TOPICAL PRN; +EPINEPHrine HCL PF/SF (1:1000) 1 MG/ML AMP I-OCULAR ONE; +HYALURONIDASE/LIDOCAINE/BUPIVACAINE 5 ML SYR RIGHT EYE ONE; -HYDR-3533 PO; -IBUP-232 PO; +LACTATED RINGER'S 1000 ML IV PRN; +LATA0.002 EACH EYE; +METOPROLOL TARTRATE 25 MG TAB PO PRN; +PILOCARPINE HCL 2% OPHT SOLN 15 ML BTL ONE; +POVIDONE IODINE 5% (ANTISEPSIS KIT) 4 APPLICATIONS EACH NARE PRN; +PROPARACAINE HCL 0.5% OPHT SOLN 15 ML BTL RIGHT EYE ONE; +PROPOFOL 200 MG/20 ML AMP ONE; +SODIUM CHLORID 0.9% 500 ML IV PRN; -TAMS5CAP PO; +TOBRAMYCIN/DEXAMETHASONE OPTH OINT 3.5 GM TUBE ONE; +VISCOAT OPHT IRRIG SOLN 0.75 ML SYRINGE ONE; -WATER PILL; -ZOFR4TAB PO
[2018-04-19 09:56] VITALS: PULSE 95
[2018-04-19] MEDS: CYCLOPENTOLATE HCL 1% OPHT SOLN 2 ML BTL RIGHT EYE SCH ×4 (09:57→10:06)
[2018-04-19] MEDS: DICLOFENAC SOD 0.1% OPHT SOLN 2.5 ML BTL RIGHT EYE SCH ×4 (09:57→10:06)
[2018-04-19] MEDS: GATIFLOXACIN 0.5% OPHT SOLN 2.5 ML BTL RIGHT EYE SCH ×4 (09:57→10:06)
[2018-04-19] MEDS: PHENYLEPHRINE HCL 2.5% OPTH SOLN 2 ML BTL RIGHT EYE SCH ×4 (09:57→10:06)
[2018-04-19] MEDS: TROPICAMIDE 1% OPHT SOLN 15 ML BTL RIGHT EYE SCH ×4 (09:57→10:06)
[2018-04-19 10:18] VITALS: PULSE 96
[2018-04-19 12:30] VITALS: TEMP 97.7
[2018-04-19 12:48] VITALS: BP 108/72; PULSE 92; RESP 16; O2SAT 98
--- NOTE | 2018-04-19 13:50 | MP ---
cc: Román Echols MD DATE OF OPERATION: 04/19/2018 PREOPERATIVE DIAGNOSIS: Cataract, right eye. POSTOPERATIVE DIAGNOSIS: Cataract right eye. OPERATION: Extracapsular cataract extraction with posterior chamber intraocular lens implant by phacoemulsification, right eye. SURGEON: Román Echols M.D. ANESTHESIA: Local. COMPLICATIONS: None. INDICATIONS: See history and physical previously dictated. OPERATIVE PROCEDURE: The patient had adequate retrobulbar and eyelid blocks administered in the holding area and was brought to the operating room. The right eye was prepped and draped in the usual sterile ophthalmic manner. A lid speculum was inserted in the right eye. A 4-0 silk bridle suture was placed through the conjunctiva near the superior rectus muscle and it was tagged to the drape. A stab incision was then made at the 2 o'clock position. Viscoelastic was injected into the anterior chamber. The anterior chamber was entered with a 2.75 mm keratome through a corneal tunnel incision. A 360 degree continuous curvilinear capsulorrhexis was then performed. Hydrodissection was utilized to divide the nucleus into inner and outer components and to separate the cortex from the capsule. Phacoemulsification was then utilized to remove the nucleus. The outer nuclear layer was removed with irrigation and aspiration and short bursts of ultrasound as necessary. The cortex was removed with the irrigation/aspiration handpiece. The posterior capsule was polished with the capsule polisher. Viscoelastic was injected into the capsular bag. The intraocular lens was inspected and found to be in good condition. The lens utilized was an Peter, model number SA60AT with a power of +24 diopters. The lens was inserted into the capsular bag. The viscoelastic in the anterior chamber was then removed with the irrigation-aspiration handpiece. Viscoelastic was also removed from beneath the intraocular lens. The anterior chamber was filled with Miochol-E through the stab incision and pressurized. The wound was checked for leaks at this pressure and normalized pressure and there were none. The 4-0 bridle suture was removed. Pilocarpine 2% eye drops were instilled topically. The lid speculum was removed. TobraDex ophthalmic ointment was applied. The eye was double patched and shielded. The patient tolerated the procedure well and left the Operating Room in satisfactory condition. MD LIZETT Mario/WALDO , 12:54 PM , 01:49 PM
== END ==
LOC: PHSDC 09:05
PROVIDERS: ATTEND Ophthalmology
DX: H25.11 Age-related nuclear cataract, right eye (principal); H40.10X1 Unspecified open-angle glaucoma, mild stage; H04.123 Dry eye syndrome of bilateral lacrimal glands; I10 Essential (primary) hypertension
CPT/HCPCS: 00142; 66984; J0171; J7040; V2632